=== PATIENT | male | born 1955 | race African-American/Black ===

== ENCOUNTER 2017-12-27 12:38 | Emergency (ER) | payer BC ==
[~2017-12-27] VITALS: Ht 177.8 cm; Wt 80.0 kg
[~2017-12-27 12:38] MED LIST: ACET-2178 PO; ALBU6.7H INH; ATOR40TA70 PO; BUDE6.9H INH; FINA5TAB11 PO; FLUO20TA29 PO; FLUT1DIS5; GABA-531 PO; IBUP-2030 PO; ONDA4TAB5 PO; P20; PANT40TA4 PO; RISP1TAB26 PO; TIOT18CA3; TRAZ-129 PO
[2017-12-27] MEDS ORDERED: ONDANSETRON HCL 4MG/2ML VIAL IV STA (12:49)
[2017-12-27] MEDS ORDERED: MORPHINE SULFATE 4 MG/ML CPJ (NOT FOR IM USE) IV STA ×2 (12:49→14:24)
[2017-12-27 13:12] LABS: BASOPHILS % 0.8 % (0.0-2.0); EOSINOPHILS % 4.5 % (0.0-5.0); HEMATOCRIT. 38.7 % (42.0-52.0); HEMOGLOBIN. 13.5 g/dL (14.0-18.0); LYMPHOCYTES % 36.2 % (20.0-50.0); MEAN CORPUSCULAR HEMOGLOBIN 32.2 pg (28.0-32.0); MEAN CORPUSCULAR VOLUME 92.4 fL (80.0-94.0); MEAN PLATELET VOLUME 7.6 fl (7.4-10.4); MONOCYTES % 8.3 % (2.0-8.0); NEUTROPHILS % 50.2 % (40.0-76.0); PLATELET 231 x1000/uL (130-400); RED BLOOD CELL COUNT 4.18 mill/uL (4.7-6.1); RED CELL DISTRIBUTION WIDTH 12.9 % (11.6-14.6)
[2017-12-27 13:16] LABS: CHLORIDE 107 mEq/L (98-107); INR 1.1; PROTHROMBIN TIME 11.5 sec (9.4-11.6)
[2017-12-27 13:19] LABS: ETHANOL BLOOD < 10 mg/dL
[2017-12-27 13:22] LABS: CLARITY URINE CLEAR (CLEAR); COLOR URINE YELLOW (YELLOW); KETONES URINE TRACE (NEGATIVE); LEUKOCYTE ESTERASE URINE NEGATIVE (NEGATIVE); NITRITE URINE NEGATIVE (NEGATIVE); OCCULT BLOOD URINE NEGATIVE (NEGATIVE); PROTEIN URINE NEGATIVE (NEGATIVE); SPECIFIC GRAVITY URINE 1.029 (1.005-1.030)
[2017-12-27 13:32] LABS: *AMPHETAMINES SCREEN URINE NEGATIVE (NEGATIVE); *BARBITURATES SCREEN URINE NEGATIVE (NEGATIVE); *BENZODIAZEPINES SCREEN URINE NEGATIVE (NEGATIVE); *COCAINE SCREEN URINE NEGATIVE (NEGATIVE); METHADONE URINE SCREEN NEGATIVE (NEGATIVE); OPIATES URINE SCREEN NEGATIVE (NEGATIVE); PHENCYCLIDINE URINE SCREEN NEGATIVE (NEGATIVE)
[2017-12-27 13:34] LABS: CANNABINOID URINE SCREEN NEGATIVE (NEGATIVE)
[2017-12-27] MEDS ORDERED: LEVOFLOXACIN 750MG PREMIX 150 ML IV ONE (14:30)
[2017-12-27] MEDS ORDERED: SODIUM CHLORIDE 0.9% 1000ML BAG (SEPSIS BOLUS) IV ONE (14:30)
[2017-12-27 18:50] VITALS: BP 123/74
== END 2017-12-27 18:52 | disposition home or self-care (01) ==
LOC: ER 12:38
DX: M47.897 Other spondylosis, lumbosacral region (principal); M48.061 Spinal stenosis, lumbar region without neurogenic claudication; J98.11 Atelectasis; J45.909 Unspecified asthma, uncomplicated
CPT/HCPCS: 36415; 71045; 72100; 72148; 80053; 80305; 81003; 83605; 83880; 84484; 85025; 85610; 87040; 87086; 93005; 96365; 96375; 96376; 99285; G0482; J1956; J2270; J2405; J7030